=== PATIENT | female | born 1945 | race African-American/Black ===

== ENCOUNTER 2021-01-02 09:01 | Day surgery (SDC) | payer OTHER ==
[2020-12-29 12:54] VITALS: BMI 27.6
[2021-01-02] MEDS ORDERED: PROPOFOL 20 ML ONE ×5 (10:35)
[2021-01-02 10:59] VITALS: TEMP 97.6
[2021-01-02 12:55] VITALS: BP 142/48; PULSE 68
== END 2021-01-02 11:35 | disposition home or self-care (01) ==
LOC: FASU-ENDO 09:01
PROVIDERS: ATTEND Internal Medicine Gastroenterology
PROC: 0DB98ZX Excision of Duodenum, Via Natural or Artificial Opening Endoscopic, Diagnostic (ICD-10-PCS; 2021-01-02)
PROC: 0DB68ZX Excision of Stomach, Via Natural or Artificial Opening Endoscopic, Diagnostic (ICD-10-PCS; 2021-01-02)
PROC: 0DJD8ZZ Inspection of Lower Intestinal Tract, Via Natural or Artificial Opening Endoscopic (ICD-10-PCS; principal; 2021-01-02 10:14)
DX: Z12.11 Encounter for screening for malignant neoplasm of colon (principal); R21 Rash and other nonspecific skin eruption; K64.0 First degree hemorrhoids; K29.50 Unspecified chronic gastritis without bleeding; K29.80 Duodenitis without bleeding; K21.00 Gastro-esophageal reflux disease with esophagitis, without bleeding
CPT/HCPCS: 43239; G0121; 88305-TC; 88342-TC